=== PATIENT | female | born 1945 | race Caucasian/White ===

== ENCOUNTER → 2023-04-19 15:01 | Outpatient (REF) | payer MEDICARE, OTHER, SELFPAY ==
--- NOTE | 2023-04-19 15:10 | CA_ITS ---
Transthoracic Echocardiogram Patient (Last, First, Middle): Sri Davis F Gender: Female Date of : 1945 Age: 77 Procedure Date: 04/19/2023 Procedure Type: Transthoracic Echocardiogram Location: OP Height: 152.4 cm Weight: 63.5 kg BSA: 1.60 m2 Heart Rate: bpm BP: 165 / 88 mmHg Attorney General: ROBIN Referring MD: Say Hines MD Symptoms: TIA G45.9 Study Quality: Adequate ECG Rhythm: Sinus Conclusions: - The left ventricular systolic function is normal. The calculated ejection fraction is 63% by biplane method. - Mild to moderate focal hypertrophy of the basal septum. - There is mild calcification of the aortic valve. - There is mild mitral annular calcification. Findings Left Ventricle Normal left ventricular cavity size. The left ventricular systolic function is normal. The calculated ejection fraction is 63% by biplane method. There is no evidence of regional wall motion abnormalities. Evidence suggests grade I (mild) diastolic dysfunction. Mild to moderate focal hypertrophy of the basal septum. LV peak GLS -19.2%. Right Ventricle Normal right ventricular cavity size and systolic function. Atria Both atria are normal in size. Aortic Valve There is a normal trileaflet aortic valve. There is mild calcification of the aortic valve. There is no aortic valve stenosis. There is mild aortic valve regurgitation. Mitral Valve The mitral valve appears normal. There is mild mitral annular calcification. There is no mitral valve regurgitation. There is no mitral valve stenosis. Pulmonic Valve The pulmonic valve is likely normal. Tricuspid Valve Normal tricuspid valve structure. There is trace tricuspid valve regurgitation. There is no evidence of pulmonary hypertension. Great Vessels The asc aorta is normal in size. Venous The inferior vena cava is normal in size and collapses greater than 50% with inspiration. Pericardium/Pleural There is no evidence of pericardial effusion. Prior Study Comparison No prior study available for comparison. Measurements 2D Linear Measurements IVSd: 0.98 0.6-0.9/0.6-1.0 cm LVIDd: 4.27 3.9-5.3/4.2-5.9 cm LVIDd Index: 2.67 2.4-3.2/2.2-3.1 cm/m2 LVIDs: 2.53 2.0-3.6 cm LVPWd: 0.89 0.7-1.1 cm LA Diam: 3.30 2.7-3.8/3.0-4.0 cm LAIDs Index: 2.06 1.5-2.3 cm/m2 LV Mass: 160.12 67-162/88-224 g LV Mass Index: 100.07 43-95/49-115 g/m2 LVOT Diam: 2.20 3.0+(-)1.3 cm 2D Systolic Function EF 4C: 60.30 >55% EF 2C: 64.40 >55% EF BiP: 62.90 >55% Mitral Valve MV Pk E: 0.57 MV PK A: 1.10 MV Decel Time: 255.00 E/A: 0.50 E'Lateral: 5.77 E'Medial: 5.11 E/E' Med: 11.20 E/E' Lat: 9.90 PHT: 75.00 MVA PHT: 2.93 Decel Worth: 2.25 Aortic Valve AoV Pk Korey: 1.30 AoV Mn Korey: 0.97 AoV VTI: 0.33 AoV Pk Grad: 7.00 Aov Mn Grad: 4.00 RICHARD Cont.VTI: 3.36 LVOT LVOT Pk Korey: 1.12 LVOT Mn Korey: 0.76 LVOT VTI: 0.29 LVOT Pk Grad: 5.00 LVOT Mn Grad: 3.00 LVOT Diam: 2.20 LVOT Area: 3.80 Diastolic Function MV Pk E: 0.57 MV Pk A: 1.10 E/A: 0.50 E'Medial: 5.11 E/E' Med: 11.20 E' Laterial: 5.77 E/E' Lat: 9.90 Right Ventricle TAPSE (mm): 26.40 TVS' Korey: 12.50 Tricuspid Valve TR Pk Korey: 2.55 TR Pk Grad: 26.00 RA Press: 3.00 RVSP: 29.00 Great Vessels Aorta Sinus of Valsalva: 3.26 2.0-3.[address] Ridge: 2.82 1.7-3.4 cm Ao Asc: 3.00 2.1-3.4 cm Updated in Other Vendor System with Status of Final Artie Tucker MD electronically signed on 04/20/2023 11:05:06 AM with status of Final
== END ==
LOC: HO.CARD 15:01
PROVIDERS: PCP Pediatrics; Visit Provider Pediatrics
DX: G45.9 Transient cerebral ischemic attack, unspecified (principal)
CPT/HCPCS: 93306; 93356

== ENCOUNTER → 2023-04-19 15:10 | Outpatient (BNV) | payer MEDICARE, OTHER, SELFPAY | PROVIDERS: PCP Pediatrics; Visit Provider Internal Medicine | DX: I35.1 Nonrheumatic aortic (valve) insufficiency (principal); I34.81 Nonrheumatic mitral (valve) annulus calcification | CPT/HCPCS: 93306 ==